=== PATIENT | female | born 2000 | race African-American/Black ===

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

== ENCOUNTER 2022-01-02 16:48 | Emergency (ER) | payer MEDICAID ==
[~2022-01-02] VITALS: Ht 167.6 cm; Wt 54.0 kg
[2022-01-02] MEDS ORDERED: TETANUS, DIPHTHERIA, PERTUSSIS VAC/PF 0.5ML (>10YR OLD) IM ONE (17:15)
[2022-01-02] MEDS ORDERED: BACITRACIN ZINC OINT UDPKT TOP ONE (17:15)
[2022-01-02] MEDS ORDERED: HYDROCODONE/ACETAMINOPHEN 5/325MG TABLET PO ONE (17:45)
[2022-01-02] MEDS ORDERED: ACETAMINOPHEN 500MG TABLET PO ONE (17:45)
[2022-01-02] MEDS ORDERED: IBUPROFEN 600MG TABLET PO ONE (17:45)
[2022-01-02] MEDS ORDERED: IBUP-2029 MT (17:51)
[2022-01-02] MEDS ORDERED: BO1 TP (17:51)
[2022-01-02 19:05] VITALS: BP 112/61
== END 2022-01-02 20:00 | disposition home or self-care (01) ==
LOC: ER 16:48
DX: S00.83XA Contusion of other part of head, initial encounter (principal); W18.39XA Other fall on same level, initial encounter; Y93.89 Activity, other specified; Y92.89 Other specified places as the place of occurrence of the external cause; Y99.8 Other external cause status; Z79.899 Other long term (current) drug therapy
CPT/HCPCS: 70486; 81025; 99284

== ENCOUNTER 2025-04-20 03:27 | Emergency (ER) | payer MEDICAID ==
[~2025-04-20] VITALS: Ht 170.2 cm; Wt 60.0 kg
[~2025-04-20 03:27] MED LIST changes: +BO1 TP; +IBUP-2029 MT
[2025-04-20 03:30] VITALS: O2SAT 99
[2025-04-20] MEDS: TETRACAINE 0.5% OPHTH DROPS 4ML LEFTEYE ONE (04:00)
[2025-04-20] MEDS: FLUORESCEIN SODIUM 1MG/STRIP LEFTEYE ONE (04:00)
[2025-04-20] MEDS: KETOROLAC 15MG/ML VIAL IV ONE (06:24)
[2025-04-20 10:31] VITALS: BP 114/64; PULSE 78; RESP 16; TEMP 37; O2SAT 100
== END 2025-04-20 10:53 | disposition short-term general hospital (02) ==
LOC: ER 03:42
DX: H16.002 Unspecified corneal ulcer, left eye (principal)
CPT/HCPCS: 81025; 96374; 99285; J1885; Z7610